=== PATIENT | male | born 2000 | race African-American/Black ===

== ENCOUNTER 2024-08-06 09:53 | Outpatient (AMB) | payer OTHER, SELFPAY ==
--- OUTSIDE RECORDS SUMMARY | 2024-08-06 11:09 | XMS_ITS ---
Author Organization [facility] Address [address] [place] [phone] Care Team Providers Care Assistant Superintendent For Curriculum Name Role Phone BLAINE Phoenix Primary Care Provider Flores jon [facility] Unavailable [phone] Ria Alcazar Unavailable [phone] REASON FOR VISIT Call [facility] to request a new card Encounters Encounter Location Date Provider Diagnosis [facility] [address] [place] [address] 07/28/2023 Ria Alcazar Plan Of Treatment No Information Progress Notes * Yrn ARANDADOB: 9 (23 yo M)Acc No.[id number]:07/28/2023 Case Management Patient:?Yrn Aranda Provider:?Ria Alcazar :2000???Age:23 Y???Sex:Male Rio e:07/28/2023 Address:[address] [place], [place] [id number] Pcp:BLAINE Navarrete Subjective: * Chief Complaints: * ???1. Call [employer] to re quest a new card. * HPI: ???Social Service:?Action Taken?Impraise? Called [employer] with client and requested for a new card. Client should receive the card within 5 to 10 business days. 07/28/23 gd2.? * Medical History:? Objective: Assessment: Plan: * Treatment: * Images: Billing Information: * Visit Code:? * Procedure Codes:? Care Plan Details* * Sign off status: Completed true * Provider:Selin Alcazar Date:?07/28/2023 Generated for Anderson lugo/Faxing/eTransmitting on:?08/06/2024 11:09 AM EST History and Physical Notes * HPI (History of Present Illness) Category Sub-Category Detail Notes Social Service Action Taken [facility] : Called [facility] ealt with client and requested for a new card. Client should receive the card within 5 to 10 business days. 07/28/23 gd2
--- OUTSIDE RECORDS SUMMARY | 2024-08-06 11:09 | XMS_ITS ---
Author Organization [facility] Address [address] [place] [id number] Care Team Providers Care Iron Carrier Name Role Phone BLAINE Phoenix Primary Care Provider Flores jon [facility] Unavailable [phone] Ria Alcazar Unavailable [phone] REASON FOR VISIT Apply for [place] Health Insurance Encounters Encounter Location Date Provider Diagnosis [facility] [address] [place] [id number] 06/30/2023 Ria Alcazar Plan Of Treatment No Information Progress Notes * Yrn ARANDADOB: 9 (23 yo M)Acc No.[id number]:06/30/2023 Case Management New Patient:?Yrn Aranda Provider:?Ria Alcazar :2000???Age:23 Y???Sex:Male Rio e:06/30/2023 Address:[address] [place], [place] [phone] Pcp:BLAINE Navarrete Subjective: * Chief Complaints: * ???1. Apply for [facility] Health Insurance. * HPI: ???Social Service:?Action Taken?[employer]? [employer] paper application was completed with client and faxed over to [facility]rollment [facility]. 06/30/23 gd2.? Objective: Assessment: Plan: * Treatment: * Images: Billing Information: * Visit Code:? * Procedure Codes:? Care Plan Details* * Sign off status: Completed true * Provider:?Ria Alcazar Date:?06/30/2023 Generated for Anderson lugo/Ernestine/eTzebsmitting on:?08/06/2024 11:09 AM EST History and Physical Notes * HPI (History of Present Illness) Category Sub-Category Detail Notes Social Service Action Taken [facility] : [employer] p aper application was completed with client and faxed over to [facility]rollment Center. 06/30/23 gd2
--- OUTSIDE RECORDS SUMMARY | 2024-08-06 11:09 | XMS_ITS ---
Author Organization [facility] Address [address], [place] [phone] Care Team Providers Care Hat Finishing Materials Preparer Name Role Phone BLAINE Phoenix Primary Care Provider Flores jon [facility] Unavailable [phone] Ria Alcazar Unavailable [phone] REASON FOR VISIT Apply for [place] [facility] [place] and SNAP Benefits Encounters Encounter Location Date Provider Diagnosis [facility] [address] [place] [phone] 03/24/2023 Ria Alcazar Plan Of Treatment No Information Progress Notes * Yrn ARANDADOB: [birth year] (22 yo M)Acc No.[id number]:03/24/2023 Case Management New Patient:?Yrn Aranda Provider:?Ria Alcazar :2000???Age:22 Y???Sex:Male Rio e:03/24/2023 Address:[address] [place], [place] [phone] Pcp:BLAINE Navarrete Subjective: * Chief Complaints: * ???1. Apply for [place] [facility] [place] and SNAP Benefits. * HPI: ???Social Service:?Action Taken?[email or web address]? [employer] [facility] paper application was completed with client and faxed over to Enrollment Center. SNAP Benefits was completed with client online. It was explained to client that DTA will call him within 5 business days to finish Intake. 03/24/23 gd2.? Objective: Assessment: Plan: * Treatment: * Images: Billing Information: * Visit Code:? * Procedure Codes:? Care Plan Details* * Sign off status: Completed true * Provider:Selin Alcazar Date:?03/24/2023 Generated for Anderson lugo/Ernestine/eTransmitting on:?08/06/2024 11:08 AM EST History and Physical Notes * HPI (History of Present Illness) Category Sub-Category Detail Notes Social Service Action Taken [facility] : [employer] p aper application was completed with client and faxed over to Enrollment Center. SNAP Benefits was completed with client online. It was explained to client that DTA will call him within 5 business days to finish Intake. 03/24/23 gd2
--- OUTSIDE RECORDS SUMMARY | 2024-08-06 11:09 | XMS_ITS | Patient Health Record ---
Author Organization [facility] Address [address], [place] [phone] Care Team Providers Care County Ordinary Name Role Phone BLAINE Phoenix Primary Care Provider Unavaila ble [facility] Unavailable [phone] Reason For Referral No Information Plan Of Treatment No Information Insurance Providers Payer Name Payer Address Payer Phone Subscriber Number Group Number Insured Name Patient Relationship to Insured Coverage Start Date Coverage End Date [facility] [id number] [place] [phone] [id number] Yrn Aranda Self - patient is the insured 1
--- NOTE | 2024-08-06 11:12 | A.OFFPC_ITS ---
Vital Signs 08/06/24 11:13 Height 6 ft 3 in Weight 195 lb BMI 24.4 BP 108/72 Blood Pressure Location Rt brachial Position Sitting Respiration 17 Pulse 92 Pulse Source Pulse Oximeter Temp 98.5 F Temp Source Oral Pulse Oximetry (%) 98 Oxygen Delivery Method Room Air Intake Visit Reasons: EstablishCareNP Intake Note: Pt is here today as a New Patient to est care/PE Allergies No Known Allergies Allergy (Verified 08/06/24 11:28) Medication List - Last Reconciled 08/06/24 by Madeline Padron MD olanzapine 10 mg PO BEDTIME olanzapine 2.5 mg PO BID PRN Tobacco use date assessed: 08/06/24 Dental Screening Dental Screen Date: 08/06/24 Did you have a dental visit in the last 12 months?: No Did you have a dental problem in the last 6 months where you did not have access to dental care?: No Was dental information given to patient?: No HPI EstablishCareNP HPI Details 24-year-old male, new to practice, here to establish care with new PCP and for physical exam. He was previously seen at pediatrics. Has had only 1 COVID vaccine but does not get the flu shot and do not see any updated Tdap on the [place] registry website. He is currently being followed at and by psychiatrist for his schizophrenia, currently stable and controlled on olanzapine [facility] Medical History (Updated 08/06/24 @ 11:49 by Madeline Padron MD) Schizophrenia Surgical History (Updated 08/06/24 @ 11:29 by Madeline Padron MD) No pertinent past surgical history Family History (Updated 08/06/24 @ 11:35 by Madeline Padron MD) Mother Essential hypertension Father Essential hypertension Paternal Grandmother No problems noted. Maternal Aunt Diabetes mellitus Maternal Grandmother Diabetes mellitus Paternal Aunt Schizophrenia Mother Depression Paternal Grandfather Lung cancer Social History (Updated 08/06/24 @ 11:45 by Madeline Padron MD) Household Members Other:: Mother Both parents involved: No Housing: Apartment Patient Tobacco Use Status: Never used Tobacco e-Cigarette/Vaping Use: Former Use service: No Current occupational status: unemployed Current occupation: Able to finish high school Cognitive needs: No Hearing needs: No Vision needs: No Questionnaire PHQ-9 Over the last 2 weeks, how often have you been bothered by any of the following problems? 1. Little interest or pleasure in doing things: more than half the days 2. Feeling down, depressed, or hopeless: several days 3. Trouble falling or staying asleep, or sleeping too much: several days 4. Feeling tired or having little energy: not at all 5. Poor appetite or overeating: not at all 6. Feeling bad about yourself - or that you are a failure or have let yourself or your family down: not at all 7. Trouble concentrating on things, such as reading the newspaper or watching television: not at all 8. Moving or speaking so slowly that other people could have noticed. Or the opposite - being so fidgety or restless that you have been moving around a lot more than usual: more than half the days 9. Thoughts that you would be better off or of hurting yourself in some way: not at all Total score: 6 Depression Screening Interpretation: Positive (Has schizophrenia, followed at [facility] by RAM[facility]N VALDIVIA ) Depression Screening Follow-up: Existing condition, In treatment and Community Mental Health Worker F/U Depression Screening Done: Yes Source: Developed by Drs. Gurinder Augustine, Shruti Rodriguez, Po Dunlap and colleagues, with an educational yemi from [employer]. Thrive Questionnaire Date Thrive assessed: 07/30/24 I am a: Patient What is your living situation today?: I have a steady place to live Within the past 12 months, did the food you bought not last and you didn't have the money to get more?: Sometimes True Within the past 12 months, did you worry whether your food would run out before you got money to buy more?: Sometimes True Do you have trouble paying for medicines?: No Do you have trouble getting transportation to medical appointments?: No Do you have trouble paying your heating and electricity bill?: Yes Do you have trouble taking care of your child, family member or friend?: No Do you have trouble with day-to-day activities such as bathing, preparing meals, shopping, managing finances, etc.?: Yes Are you currently unemployed and looking for a job?: Yes Are you interested in more education?: No Please select the resources that you would like help with: Housing/Intermediate, Food, Transportation, Utilities and Daily support Currently or been in a relationship where the following occur: No concerns reported THRIVE Score: 3 AUDIT C Alcohol Use Questionnaire (AUDIT-C) 1. How often do you have a drink containing alcohol?: Never Total Score: 0 AUDREY-7 AMB Questionnaire AUDREY-7 Date AUDREY - 7 assessed: 08/06/24 Feeling nervous, anxious, or on edge: 1 = Several days Not being able to stop or control worryin = Not at all Worrying too much about different things: 0 = Not at all Trouble relaxin = Several days Being so restless that it is hard to sit still: 1 = Several days Becoming easily annoyed or irritable: 0 = Not at all Feeling afraid as if something awful might happen: 0 = Not at all Total AUDREY-7 score (0-4 normal; 5-9 mild; 10-14 moderate; 15-21 severe): 3 Source: Developed by Drs. Gurinder Augustine, Shruti Rodriguez, Po Dunlap and colleagues, with an educational yemi from [employer]. AUDREY-7 Assessment Billing AUDREY-7 Assessment Tool: AUDREY-7 Assessment 20941 Review of Systems Const Denies body aches, Denies fatigue, Denies fever(s), Denies headache(s) and Denies weakness Eyes Denies change in vision ENT Denies dizziness, Denies headache(s), Denies nasal congestion and Denies nasal discharge Card Denies chest pain, Denies lightheadedness, Denies palpitations and Denies dyspnea Resp Denies chest congestion, Denies cough, Denies dyspnea and Denies wheezing GI Denies abdominal pain, Denies change in bowel habits and Denies heartburn Denies hematuria, Denies difficulty urinating, Denies genital lesions, Denies genital pain, Denies dysuria, Denies penile discharge, Denies testicular mass, Denies urinary frequency and Denies urinary urgency Musc Reports no additional complaints Skin/Breast Denies lesions and Denies rash Neuro Denies dizziness, Denies headache(s) and Denies weakness Psych Reports as per HPI Endo Denies fatigue, Denies polydipsia, Denies polyuria and Denies palpitations Juan/Lymph Denies easy bruising Aller/Immun Denies seasonal rhinorrhea and Denies wheezing Physical exam (Primary Care) Vital Signs: Last Vital Signs Temp 98.5 F 08/06/24 11:13 Pulse 92 08/06/24 11:13 Resp 17 08/06/24 11:13 BP 108/72 08/06/24 11:13 Pulse Ox 98 08/06/24 11:13 Oxygen Delivery Method Room Air 08/06/24 11:13 BMI result Body Mass Index 24.4 Tobacco/Smoking Status: Tobacco use Status Tobacco use date assessed 08/06/24 08/06/24 11:19 Patient Tobacco Use Status Never used Tobacco 08/06/24 11:19 e-Cigarette/Vaping Use Former Use 08/06/24 11:19 PHQ-9: PHQ-9 Score PHQ-9: Total score 9 08/06/24 11:36 Depression Screening Interpretation: Positive (Has schizophrenia, followed at [facility] by RAMÓN VALDIVIA ) Depression Screening Follow-up: Existing condition, In treatment and Community Mental Health Worker F/U Thrive Assessment: Date of Thrive Assessment Date Thrive assessed 07/30/24 08/06/24 11:14 Currently or been in a relationship where the following occur: No concerns reported Advance Care Planning discussion: Completed/Scanned Date of discussion: 08/06/24 Who was present: Patient and mother Forms completed: Health Care Proxy Time spent: 16-45 minutes Actual minutes spent: 2 Const General: no acute distress and alert Nutritional Appearance: not obese Orientation/consciousness: patient oriented x3 HENMT Head: Yes normocephalic and Yes atraumatic Ears: external ears normal, TM's normal bilaterally and EAC's normal General nose exam: Normal external nose present and No nasal discharge present Face and sinus: Yes face symmetric Mouth: Normal oral and palatal mucosa present, lip normal, tongue normal, oropharynx normal and moist mucous membranes Eyes General: appearance normal, both eyes and all related structures Eyelids: Yes eyelids normal Conjunctivae: conjunctivae normal Sclerae: sclerae normal Pupils: Equal, round and reactive pupils present EOM: EOMs intact bilaterally Neck Neck: Yes full ROM, Yes no lymphadenopathy and Yes supple Thyroid: Thyroid normal Chest Chest palpation & inspection: normal inspection of the chest Resp Effort & Inspection: normal respiratory effort and able to speak in complete sentences Auscultation: clear to auscultation bilaterally Cardio Rate: regular rate Rhythm: regular rhythm Heart sounds: S1 normal heart sound present and S2 normal heart sound present GI Palpation (GI): Soft to palpation, nontender, no guarding and no masses Auscultation: normal bowel sounds General: Yes no CVA tenderness Male General Exam: No hernia Scrotum: no hydroceles and no inguinal hernias Testes: no testicular mass Back/Spine/Pelvis Back: no CVA tenderness and No back tenderness Skin General skin exam: no rashes or lesions noted Neuro General: patient oriented x3, gait normal, moves all extremities, Normal light touch and pain sensation, no focal motor deficits and CN's II-XI intact bilaterally Cranial nerves: Yes Equal, round and reactive pupils present Cognition (Neuro): normal cognition Gait exam (Neuro): Normal gait present Motor exam (neuro): 5/5 motor strength present throughout Extrem General: Yes normal to inspection, Yes full ROM, Yes no joint enlargement, Yes no pedal edema and Yes normal gait Psych Appearance: grossly normal and well kempt Mental Status: mental status grossly normal Speech and movement: Normal speech and movement present Affect: normal affect Attitude: cooperative Thought process: Normal thought process present Thought content: Normal thought content present Coding Level of Care Code New Pt Prev Care 18-39yr(37513 Diagnoses Annual visit for general adult medical examination with abnormal findings Z00. Schizophrenia, unspecified type F20.9 Schizophrenia type: unspecified Advanced directives, counseling/discussion Z71.89 Additional Codes AUDREY-7 Assessment Billing - AUDREY-7 Assessment Tool: AUDREY-7 Assessment 80436 ([id number]) Vital Signs *Quality* - Advance Care Planning discussion: Completed/Scanned ([id number]) Vital Signs *Quality* - Time spent: 16-45 minutes ([id number]) Assessment & Plan Assessment & Plan (1) Annual visit for general adult medical examination with abnormal findings: Code(s): Z00.01 - Encounter for general adult medical examination with abnormal findings Plan: Will check appropriate labs. Recommended dental visit every 6 months and regular eye exams, at least every 2 years. Take adequate calcium in diet and vitamin-D 3 at 2000 IU per cap once a day, in addition to weight-bearing exercises to help maintain good muscle tone and weight control. Instructed to do testicular exam check for any mass. Does not want to get a COVID booster or the flu vaccine. Tdap given today (2) Schizophrenia: Comment: Followed by psychiatrist in [place] at [facility] Code(s): F20.9 - Schizophrenia, unspecified Category: Medical Qualifiers: Schizophrenia type: unspecified Qualified Code(s): F20.9 - Schizophrenia, unspecified Plan: Followed byDOVJUAN CARLOS VALDIVIA at and currently on olanzapine (3) Advanced directives, counseling/discussion: Code(s): Z71.89 - Other specified counseling Plan: Initiated the conversation about Advanced Directives. Advanced Directives help patients prepare for current and future decisions about their medical treatment and place of care. Discussed with patient that it is a process where a patients current condition and prognosis are reviewed, their wishes for information regarding their illness are elicited, and likely medical dilemmas are presented and options discussed. Health care proxy formTh completed today. e form can be amended as needed, reviewed yearly and make changes as needed Orders: Orders Comprehensive [place]. Panel Fast Today F20.9 - Schizophrenia, unspecified, Z00.01 - Encounter for general adult medical examination with abnormal findings, Z13.1 - Encounter for screening for diabetes mellitus, Z13.220 - Encounter for screening for lipoid disorders Lipid Panel Today F20.9 - Schizophrenia, unspecified, Z00.01 - Encounter for general adult medical examination with abnormal findings, Z13.1 - Encounter for screening for diabetes mellitus, Z13.220 - Encounter for screening for lipoid disorders Hemoglobin and Hematocrit Today F20.9 - Schizophrenia, unspecified, Z00.01 - Encounter for general adult medical examination with abnormal findings, Z13.1 - Encounter for screening for diabetes mellitus, Z13.220 - Encounter for screening for lipoid disorders
[2024-08-06 11:13] VITALS: BP 108/72; PULSE 92; RESP 17; TEMP 36.9; O2SAT 98; BMI 24.4
== END 2024-08-06 11:56 | disposition home or self-care (01) ==
PROVIDERS: PCP Internal Medicine; Visit Provider Internal Medicine
DX: Z00.01 Encounter for general adult medical examination with abnormal findings (principal); F20.9 Schizophrenia, unspecified; Z71.89 Other specified counseling; Z23 Encounter for immunization

== ENCOUNTER 2024-08-06 09:53 | Outpatient (REF) | payer MEDICAID, SELFPAY ==
[2024-08-06 13:15] LABS: Hematocrit 41.2 % (42.0-52.0); Hemoglobin 14.5 g/dl (14.0-18.0)
[2024-08-06 13:40] LABS: Alanine Aminotransferase 12 U/L (0-40); Albumin Level 4.5 g/dL (3.5-5.0); Alkaline Phosphatase 54 U/L (39-117); Anion Gap 12 (12-20); Aspartate Amino Transferase 24 U/L (5-37); Bilirubin Total 0.9 mg/dL (0.0-1.0); Blood Urea Nitrogen 15 mg/dL (9-16); Calcium 9.6 mg/dL (8.4-10.2); Carbon Dioxide 29 mmol/L (22-29); Chloride 107 mmol/L (96-108); Cholesterol 103 mg/dL (<200); Estimated Glomerular Filt Rate > 60; Glucose Fasting 85 mg/dL (60-99); HDL Cholesterol 39 mg/dL (>40); LDL Cholesterol Calculated 50 mg/dL (<100); Potassium 4.4 mmol/L (3.3-5.1); Sodium 144 mmol/L (135-145); Total Protein 8.3 g/dL (6.5-8.0); Triglycerides 74 mg/dL (<150)
== END 2024-08-06 09:54 | disposition home or self-care (01) ==
LOC: HO.HMGCLDS 09:53
PROVIDERS: PCP Internal Medicine; Visit Provider Internal Medicine
DX: Z00.01 Encounter for general adult medical examination with abnormal findings (principal); Z23 Encounter for immunization; F20.9 Schizophrenia, unspecified; Z79.899 Other long term (current) drug therapy; Z71.89 Other specified counseling; Z13.220 Encounter for screening for lipoid disorders; Z13.1 Encounter for screening for diabetes mellitus
CPT/HCPCS: 36415; 80053; 80061; 85014; 85018; 90471; 90715; 96127; 99385; 99497